=== PATIENT | male | born 1955 | race Caucasian/White ===

== ENCOUNTER 2019-04-20 05:48 | Day surgery (SDC) | payer BC ==
[~2019-04-20 05:48] MED LIST: Buffered Lidocaine 1% SYRIN* 1 ML/SYRINGE INTRADERM ONE
[2019-04-20] MEDS ORDERED: Dexamethasone TAB* 4 MG PO ONE (06:00)
[2019-04-20] MEDS ORDERED: Famotidine IV* 10 MG/ML 2 ML (20 mg) IV ONE (06:00)
[2019-04-20] MEDS ORDERED: Ondansetron ODT TAB* 4 MG PO ONE (06:00)
[2019-04-20] MEDS ORDERED: Lactated Ringers 1000 ML Bag* 1,000 ML IV SCH (06:00)
[2019-04-20] MEDS ORDERED: Ondansetron ODT TAB* 4 MG ONE (06:23)
[2019-04-20] MEDS ORDERED: Dexamethasone TAB* 4 MG ONE (06:23)
[2019-04-20] MEDS ORDERED: Famotidine IV* 10 MG/ML 2 ML (20 mg) ONE (06:24)
[2019-04-20] MEDS ORDERED: ceFAZolin 2 GM in NS PREMIX(*) 2 GM/100 ML BAG IVPB ONE (06:24)
[2019-04-20] MEDS ORDERED: Lidocaine 1% INJ* 10 MG/ML 30 ML SDV ONE (07:01)
[2019-04-20] MEDS ORDERED: Bupivacaine 0.5% W/EPI SDV* 30 ML VIAL ONE (07:01)
[2019-04-20] MEDS ORDERED: Midazolam* 1 MG/ML 5 ML VIAL (5 MG) ONE (07:27)
[2019-04-20] MEDS ORDERED: fentaNYL* 50 MCG/ML 2 ML VIAL (100 MCG VIAL) ONE (07:27)
[2019-04-20] MEDS ORDERED: Midazolam* 1 MG/ML 2 ML VIAL (2 MG) ONE (07:52)
[2019-04-20] MEDS ORDERED: Naloxone* 0.4 MG/ML 1 ML VIAL IV PRN (08:05)
[2019-04-20] MEDS ORDERED: Lidocaine 2% PF * 5 ML VIAL ONE (08:13)
[2019-04-20] MEDS ORDERED: Propofol* 10 MG/ML 20 ML BTL ONE (08:13)
[2019-04-20] MEDS ORDERED: oxyCODONE TAB* 5 MG TAB PO PRN (08:31)
[2019-04-20] MEDS ORDERED: Ibuprofen TAB* 600 MG PO PRN (08:31)
[2019-04-20 09:04] VITALS: BP 115/74
--- NOTE | 2019-04-20 22:42 | OP ---
CC: Darrell Quintana MD * DATE OF OPERATION: 04/20/18 - [facility] DATE OF : 57 SURGEON: Adrian Brady MD [employer] SUPERINTENDENT: MAMADOU Dawson student. ANESTHESIOLOGIST: Dr. Macario. ANESTHESIA: Local MAC. PRE-OP DIAGNOSIS: Umbilical hernia. POST-OP DIAGNOSIS: Umbilical hernia. OPERATIVE PROCEDURE: Open umbilical hernia repair with mesh. ESTIMATED BLOOD LOSS: Minimal. IV FLUIDS: Crystalloid. SPECIMEN: None. DRAINS: None. COMPLICATIONS: None. COUNTS: The instruments, needle and sponge counts were correct. DESCRIPTION OF PROCEDURE: The patient was brought to the operating room and placed on the table supine. Sequential compression devices were placed on both lower extremities. Intravenous sedation was administered. He received appropriate intravenous antibiotics. He was prepped and draped in the usual sterile fashion and the time-out was performed. Local anesthetic was infiltrated. Periumbilical and a curvilinear infraumbilical incision was created. The umbilical stalk was dissected free from the anterior abdominal wall and the umbilical hernia sac was entered. This contained fat, which was reduced. This appeared to be preperitoneal fat. The hernia defect measured 2 cm. The edges of the hernia defect were cleared to healthy fascia. A small size Ventrio mesh was used for the repair. This was placed through the defect, drawn up to the abdominal wall by the strap and the mesh was sutured superiorly and inferiorly to the fascia with 0 Ethibond. Lastly, the fascia was closed transversely in an interrupted [id number] fashion. Umbilical stalk was reapproximated to the anterior fascia with 3-0 Vicryl. Skin was closed with 4-0 Monocryl in a subcuticular fashion. Steri-Strips and dressings were applied. The patient tolerated the procedure well and transferred to Recovery stable. [id number]/[facility] #: [id number] [facility]PITALAmrik
== END 2019-04-20 09:22 | disposition home or self-care (01) ==
LOC: OR 05:48
PROVIDERS: ATTEND Surgery
DX: K42.9 Umbilical hernia without obstruction or gangrene (principal); I10 Essential (primary) hypertension; G47.33 Obstructive sleep apnea (adult) (pediatric); K21.9 Gastro-esophageal reflux disease without esophagitis; M19.90 Unspecified osteoarthritis, unspecified site; F17.210 Nicotine dependence, cigarettes, uncomplicated
CPT/HCPCS: A9270-GY; C1781; J0690; J2250; J2704; J3010; J8540